=== PATIENT | female | born 1930 | race Caucasian/White ===

== ENCOUNTER 2016-09-07 09:25 | Day surgery (SDC) | payer OTHER, MEDICARE ==
[2016-08-31 13:34] VITALS: BMI 23.5
[~2016-09-07 09:25] MED LIST: LACTATED RINGERS SOLUTION 1,000 ML IV SCH
[2016-09-07] MEDS: CYCLOPENTOLATE HCL 1% OPHTH SOLN 2 ML BOTTLE ONE ×5 (10:00→10:20)
[2016-09-07] MEDS: PHENYLEPHRINE 2.5% OPHTH SOLN 15 ML BOTTLE ONE ×5 (10:00→10:20)
[2016-09-07] MEDS: GENTAMICIN SULFATE 0.3% OPHTHALMIC (EYE DROPS) 5ML BOTTLE ONE ×5 (10:00→10:20)
[2016-09-07] MEDS: FLURBIPROFEN 0.03% OPHTH SOLN 2.5 ML BOTTLE ONE ×5 (10:00→10:20)
[2016-09-07] MEDS: TROPICAMIDE 1% OPHTH SOLN 15 ML BOTTLE ONE ×5 (10:00→10:20)
[2016-09-07] MEDS ORDERED: MIDAZOLAM HCL 2 MG/2 ML SINGLE DOSE VIAL ONE (10:57)
[2016-09-07] MEDS ORDERED: METOPROLOL TARTRATE 5 MG/5 ML VIAL ONE (10:58)
[2016-09-07] MEDS ORDERED: ONDANSETRON 4 MG/2 ML VIAL IVPUSH PRN (11:14)
[2016-09-07] MEDS ORDERED: BETAXOLOL HCL 0.25% OPHTHALMIC 10 ML DROPSBTL ONE (11:25)
[2016-09-07] MEDS ORDERED: BACITRACIN/POLYMYXIN OPH OINT 3.5 GM TUBE ONE (11:25)
[2016-09-07] MEDS ORDERED: NEO/POLYMYX B SULF/DEXAMETH OPHTHALMIC 5ML BOTTLE ONE (11:26)
[2016-09-07] MEDS ORDERED: ACETAMINOPHEN 325 MG TABLET (FP) PO PRN (11:54)
[2016-09-07 12:35] VITALS: TEMP 98.9
[2016-09-07 12:43] VITALS: BP 140/67; PULSE 70
--- NOTE | 2016-09-08 11:10 | OP ---
DATE OF OPERATION: 09/07/2016 PROCEDURE: Planned extracapsular cataract extraction, phacoemulsification, insertion of posterior chamber lens implant in the right eye. SURGEON: Padilla Bernabe MD INVENTORY CLERK SURGEON: Padilla Bernabe MD ANESTHESIA: Local with standby. ANESTHESIOLOGIST: Dunia Sheridan MD COMPLICATIONS: None. PREOPERATIVE DIAGNOSIS: Cataract right eye. POSTOPERATIVE DIAGNOSIS: Cataract right eye. DESCRIPTION OF PROCEDURE: After successful peribulbar anesthesia was given to the right eye, the patient was prepped and draped in the usual manner exposing the right eye. The Tegaderm strips were placed. Lid speculum was inserted. Microscope was in position over the eye. Superior flap was then fashioned for 12 mm and Stephy scissors with 2 forceps, and hemostasis achieved with electrocautery. The limbal groove for 3 mm was fashioned with a crescent blade and dissected anterior into clear cornea. Then a 3-mm blade was used to enter the anterior chamber, and under Viscoat 360-degree anterior capsulotomy was performed and anterior capsule leaflet was removed from the eye. Phacoemulsification of the entire nucleus was done in approximately 2 minutes time followed by irrigation and aspiration of all cortical material leaving the entire posterior capsule and a red reflex present. Then Provisc was injected to the posterior chamber deep into the posterior capsule and the implant was inspected carefully with a microscope and found to be free of defects, debris, and flaws. It was folded, placed in the Provisc-filled cartridge. Cartridge was placed in the injector and then injected into the eye such that the inferior haptic was in inferior capsular bag and the superior haptic was in the superior capsular bag and rotated in a horizontal position with a Sinskey hook. The Provisc was aspirated out with replaced with Miochol and Miostat and BSS, and the wound was closed with a single interrupted 2-0 Ethilon suture. Tested for leakage, and none was found. The conjunctival flap was reapproximated. At this point, the implant was fixated in the capsular bag centrally located with a round pupil, intact posterior capsule, and a red reflex present. Topical Betoptic-S and Maxitrol ophthalmic suspensions were placed as well as bacitracin polymyxin B ophthalmic ointment. Tegaderm strips and lid speculum were removed from the lids. The lids were closed and the patch and shield placed on the eye. The patient was then discharged from the operating room to the recovery area in good condition having tolerated the procedure well. PADILLA BERNABE M.D. [facility]/[id number]
== END 2016-09-07 12:25 | disposition home or self-care (01) ==
LOC: FASU 09:25
PROVIDERS: ATTEND Ophthalmology
PROC: 08RJ3JZ Replacement of Right Lens with Synthetic Substitute, Percutaneous Approach (ICD-10-PCS; principal; 2016-09-07 11:09)
DX: H26.8 Other specified cataract (principal)

== ENCOUNTER 2016-10-26 07:50 | Day surgery (SDC) | payer OTHER, MEDICARE ==
[2016-10-14 11:24] VITALS: BMI 25.8
[2016-10-26] MEDS: TROPICAMIDE 1% OPHTH SOLN 15 ML BOTTLE ONE ×5 (08:15→08:35)
[2016-10-26] MEDS: CYCLOPENTOLATE HCL 1% OPHTH SOLN 2 ML BOTTLE ONE ×5 (08:15→08:35)
[2016-10-26] MEDS: GENTAMICIN SULFATE 0.3% OPHTHALMIC (EYE DROPS) 5ML BOTTLE ONE ×5 (08:15→08:35)
[2016-10-26] MEDS: FLURBIPROFEN 0.03% OPHTH SOLN 2.5 ML BOTTLE ONE ×5 (08:15→08:35)
[2016-10-26] MEDS: PHENYLEPHRINE 2.5% OPHTH SOLN 15 ML BOTTLE ONE ×5 (08:15→08:35)
[2016-10-26] MEDS ORDERED: MIDAZOLAM HCL 2 MG/2 ML SINGLE DOSE VIAL ONE (09:16)
[2016-10-26] MEDS ORDERED: LIDOCAINE HCL/PF 2% SDV 5ML VIAL ONE (09:18)
[2016-10-26] MEDS ORDERED: BUPIVACAINE HCL/PF 0.5% (5MG/ML) 10 ML VIAL ONE (09:18)
[2016-10-26] MEDS ORDERED: TETRACAINE 0.5% OPHTH SOLN 2 ML BOTTLE ONE (09:18)
[2016-10-26] MEDS ORDERED: LIDOCAINE HCL 2% JELLY 10 ML CARTRIDGE ONE (09:18)
[2016-10-26] MEDS ORDERED: ACETYLCHOLINE 1:100 INTRA-OCUL 20 MG/2 ML KIT ONE (09:19)
[2016-10-26] MEDS ORDERED: ACETAMINOPHEN 325 MG TABLET (FP) PO PRN (09:29)
[2016-10-26] MEDS ORDERED: PROPOFOL 20 ML ONE (09:51)
[2016-10-26 11:47] VITALS: PULSE 80; TEMP 98.1
[2016-10-26 11:53] VITALS: BP 144/97
--- NOTE | 2016-10-27 14:17 | OP ---
DATE OF OPERATION: 10/26/2016 TITLE OF PROCEDURE: Planned extracapsular cataract extraction, phacoemulsification, and insertion of posterior chamber lens implant in the left eye. SURGEON: Padilla Bernabe MD EXTENSION SUPERVISOR SURGEON: Padilla Bernabe MD COMPLICATIONS: None. PREOPERATIVE DIAGNOSIS: Cataract, left eye. POSTOPERATIVE DIAGNOSIS: Cataract, left eye. ANESTHESIOLOGIST: Dakotah Vance MD FINDINGS AT PROCEDURE: After successful peribulbar anesthesia was given to the left eye, the patient was prepped and draped in the usual manner to expose the left eye. Tegaderm strips and a lid speculum were inserted and the microscope was positioned over the left eye. Attention was focused on the superior fornix, where a 12-mm flap was fashioned using Stephy scissors and 0.12 forceps. Hemostasis was achieved with electrocautery. A limbal groove was fashioned for 3 mm with a crescent blade dissecting anterior to clear cornea. Then, a 3-mm blade was used to enter the anterior chamber. A Viscoat 360-degree anterior capsulotomy was performed and the leaflet removed from the eye. Phacoemulsification of the entire nucleus was then done in approximately 2 minutes' time, followed by irrigation and aspiration of all cortical material and leaving an intact posterior capsule and a red reflex present. The Provisc filled the posterior chamber to deepen the posterior capsule. The implant was inspected carefully with the microscope and found to be free of defects or being flawed. It was folded and placed in the Provisc-filled cartridge. The cartridge was placed in the injector and then the implant was injected so that the inferior haptic was in the inferior capsular bar and superior haptic in the superior capsular bag and rotated in a horizontal position with the Sinskey hook. The Provisc was then spread out. It was placed with Miochol, Miostat and BSS. The wound was then closed with one single interrupted 2-0 Ethilon suture and tested for leakage and none was found. At this point, the endoconjunctival flap was reapproximated. Then, the implant was fixated in the capsular bag, centrally located, with a round pupil intact, posterior capsule and a red reflex present. Topical Betoptic and Maxitrol ophthalmic suspensions were placed as was bacitracin/polymyxin B ophthalmic ointment. Then, the Tegaderm strips and lid speculum were removed from the lids. The lids were closed. A patch and shield were placed on the eye. The patient was then discharged from the operating room to the recovery room in good condition, having tolerated the procedure well. PADILLA BERNABE M.D. [facility]/[id number]
== END 2016-10-26 11:45 | disposition home or self-care (01) ==
LOC: FASU 07:50
PROVIDERS: ATTEND Ophthalmology
PROC: 08RK3JZ Replacement of Left Lens with Synthetic Substitute, Percutaneous Approach (ICD-10-PCS; principal; 2016-10-26 10:04)
DX: H26.8 Other specified cataract (principal)